=== PATIENT | female | born 1990 | race African-American/Black ===

== ENCOUNTER 2017-09-03 23:27 | Emergency (ER) | payer OTHER ==
--- NOTE | 2017-09-04 01:27 | EDPHYS ---
Physician Documentation [facility] Name: Sarah Solomon Age: 27 yrs Sex: Female : 1990 Arrival Date: 09/03/2017 Time: 23:31 Bed 14 Private MD: ED Physician Jose Spear HPI: 09/04 01:23 This 27 yrs old Black Female presents to ER via Ambulatory with complaints of hand pain.gs 01:23 The patient or guardian reports injury. The complaints affect the palmar aspect of gs distal phalanx of left thumb and palmar aspect of proximal phalanx of left thumb. Context: The problem was sustained at home, resulted from a direct blow, hyperextension. Onset: The symptoms/episode began/occurred acutely, 2 day(s) ago. Modifying factors: the symptoms are aggravated by movement. Associated signs and symptoms: Pertinent negatives: cyanosis distally, numbness distally. Severity of symptoms: At their worst the symptoms were moderate, in the emergency department the symptoms are unchanged. The patient has not experienced similar symptoms in the past. 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 - Social history:: Smoking status: Patient uses tobacco products, smokes one-half pack cigarettes per day. ROS: 09/04 01:23 All other systems are negative. gs Exam: 01:23 Head/Face: Normocephalic, atraumatic. Eyes: Pupils equal round and reactive to light, gs extra-ocular motions intact. Lids and lashes normal. Conjunctiva and sclera are non-icteric and not injected. Cornea within normal limits. Periorbital areas with no swelling, redness, or edema. ENT: Nares patent. No nasal discharge, no septal abnormalities noted. Tympanic membranes are normal and external auditory canals are clear. Oropharynx with no redness, swelling, or masses, exudates, or evidence of obstruction, uvula midline. Mucous membranes moist. Neck: Trachea midline, no thyromegaly or masses palpated, and no cervical lymphadenopathy. Supple, full range of motion without nuchal rigidity, or vertebral point tenderness. No Meningismus. Chest/axilla: Normal chest wall appearance and motion. Nontender with no deformity. No lesions are appreciated. Cardiovascular: Regular rate and rhythm with a normal S1 and S2. No gallops, murmurs, or rubs. Normal PMI, no JVD. No pulse deficits. Respiratory: Lungs have equal breath sounds bilaterally, clear to auscultation and percussion. No rales, rhonchi or wheezes noted. No increased work of breathing, no retractions or nasal flaring. Abdomen/GI: Soft, non-tender, with normal bowel sounds. No distension or tympany. No guarding or rebound. No evidence of tenderness throughout. Back: No spinal tenderness. No costovertebral tenderness. Full range of motion. Skin: Warm, dry with normal turgor. Normal color with no rashes, no lesions, and no evidence of cellulitis. Neuro: Awake and alert, GCS 15, oriented to person, place, time, and situation. Cranial nerves II-XII grossly intact. Motor strength 5/5 in all extremities. Sensory grossly intact. Cerebellar exam normal. Normal gait. 01:23 Constitutional: The patient appears alert, awake. 01:23 Musculoskeletal/extremity: Extremities: noted in the palmar aspect of distal phalanx of left thumb and palmar aspect of proximal phalanx of left thumb: pain, swelling, tenderness, Circulation is intact in all extremities. Vital Signs: 09/03 23:52 BP 133 / 62; Pulse 82; Resp 18; Temp 98.1(TE); Pulse Ox 99% on R/A; Weight 84.82 kg ak1 (R); Height 5 ft. 2 in. (157.48 cm) (R); Pain 0/10; 23:52 Body Mass Index 34.20 (84.82 kg, 157.48 cm) ak1 23:52 pt c/o numbness at this time ak1 Procedures: 09/04 01:27 Splinting: Splint applied to left hand using Orthoglass splint, applied by tech. Examined by me, post splint application: neurovascular intact, 2+ distal pulses palpable, brisk capillary refill noted, Patient tolerated well. MDM: 00:41 Patient medically screened. gs 01:23 Differential diagnosis: closed fracture, contusion, tendonitis. Data reviewed: vital gs signs, nurses notes. Response to treatment: the patient's symptoms have mildly improved after treatment, and as a result, I will discharge patient. 09/04 00:42 Order name: Hand Left 3 View XRAY 09/04 01:26 Order name: Splint: thumb spica; Complete Time: 01:44 Administered Medications: No medications were administered Disposition: 09/04/17 01:25 Discharged to Home. Impression: Sprain of interphalangeal joint of left thumb. - Condition is Stable. - Discharge Instructions: Gamekeeper's, Skier's Thumb. - Prescriptions for Tylenol- Codeine #4 300-60 mg Oral Tablet - take 1 tablet by ORAL route every 6 hours As needed; 10 tablet. - Work release form, Medication Reconciliation Form, Thank You Letter, Antibiotic Education, Prescription Opioid Use form. - Follow up: James Khan MD; When: 2 - 3 days; Reason: Re-evaluation by your physician. Signatures: Dispatcher [employer] Yumiko Perez RN RN ak1 Jose Spear MD MD Issac Covarrubias RN RN
--- NOTE | 2017-09-04 01:27 | ER ---
Nurse's Notes [facility] Name: Sarah Solomon Age: 27 yrs Sex: Female : 1990 Arrival Date: 09/03/2017 Time: 23:31 Bed 14 Private MD: Diagnosis: Sprain of interphalangeal joint of left thumb Presentation: 09/03 23:50 Presenting complaint: Patient states: left thumb pain since yesterday after playing ak1 with family. pt c/o limited ROM and swelling to left thumb. Transition of care: patient was not received from another setting of care. Onset of symptoms was September 02, 2017. Care prior to arrival: None. 23:50 Method Of Arrival: Ambulatory ak1 23:50 Acuity: JOSÉ 4 ak1 Triage Assessment: 23:56 General: Appears in no apparent distress. Behavior is calm, cooperative. ak1 DIRECTOR HOME: 23:52 LMP 08/17/2017 ak1 Historical: - Allergies: 23:52 No Known Allergies; ak1 - Home Meds: 23:52 None [Active]; ak1 - PMHx: 23:52 None; ak1 - PSHx: 23:52 None; ak1 - Immunization history:: Adult Immunizations unknown. - Social history:: Smoking status: Patient uses tobacco products, smokes one-half pack cigarettes per day. Screenin:56 Abuse screen: Denies threats or abuse. Denies injuries from another. Nutritional ak1 screening: No deficits noted. Tuberculosis screening: No symptoms or risk factors identified. Fall Risk None identified. Assessment: 09/04 00:13 General: Appears comfortable, well groomed, well developed, Behavior is calm, fu cooperative, appropriate for age, Denies fever, chills. Pain: Complains of pain in left thumb Pain does not radiate. Pain currently is 2 out of 10 on a pain scale. Quality of pain is described as Pain began 1 day ago. Neuro: No deficits noted. Respiratory: Breath sounds are clear bilaterally. Derm: swelling to left thumb. Vital Signs: 09/03 23:52 BP 133 / 62; Pulse 82; Resp 18; Temp 98.1(TE); Pulse Ox 99% on R/A; Weight 84.82 kg ak1 (R); Height 5 ft. 2 in. (157.48 cm) (R); Pain 0/10; 23:52 Body Mass Index 34.20 (84.82 kg, 157.48 cm) ak1 23:52 pt c/o numbness at this time ak1 ED Course: 23:31 Patient arrived in ED. ds1 23:47 Issac Covarrubias, RN is Primary Nurse. fu 23:51 Triage completed. ak1 23:53 Jose Spear MD is Attending Physician. gs 23:56 Patient has correct armband on for positive identification. Bed in low position. Call ak1 light in reach. Side rails up X 1. Adult w/ patient. Pulse ox on. NIBP on. 23:57 Arm band placed on Patient placed in an exam room, on a stretcher, on pulse oximetry, ak1 Patient notified of wait time. 0318 00:57 X-ray completed. Portable x-ray completed in exam room. Patient tolerated procedure jw2 well. 01:25 Jaems Khan MD is Referral Physician. gs 01:55 Thumb spica splint applied by Ivonne Murphy soil science technical officer. fu 02:09 Patient did not have IV access during this emergency room visit. fu Administered Medications: No medications were administered Outcome: 01:25 Discharge ordered by . gs 01:55 Discharged to home ambulatory. fu 01:55 Condition: stable 01:55 Discharge instructions given to patient, Instructed on discharge instructions, Demonstrated understanding of instructions, medications, Prescriptions given X 1. 02:10 Patient left the ED. fu Signatures: Sirisha Sigala ds1 Yumiko Guillermo RN RN ak1 Ev Gee jw2 Jose Spear MD MD Issac Covarrubias, MANUELA RN fu Corrections: (The following items were deleted from the chart) 00:17 00:06 Issac Covarrubias, MANUELA is Primary Nurse. fu fu
--- NOTE | 2017-09-04 13:00 | RAD REPORT ---
EXAM DESCRIPTION: RAD - Hand Left 3 View - 09/04/2017 1:00 am CLINICAL HISTORY: First digit pain COMPARISON: None. FINDINGS: No bone or joint abnormality is detected.
== END 2017-09-04 02:10 | disposition home or self-care (01) ==
LOC: ER 23:27
PROC: 2W3HX1Z Immobilization of Left Thumb using Splint (ICD-10-PCS; principal; 2017-09-04)
DX: S63.622A Sprain of interphalangeal joint of left thumb, initial encounter (principal); X58.XXXA Exposure to other specified factors, initial encounter; Y93.9 Activity, unspecified; Y92.009 Unspecified place in unspecified non-institutional (private) residence as the place of occurrence of the external cause; F17.210 Nicotine dependence, cigarettes, uncomplicated
CPT/HCPCS: 99283

== ENCOUNTER 2018-08-08 16:42 | Emergency (ER) | payer OTHER ==
--- NOTE | 2018-08-08 18:04 | EDPHYS ---
Physician Documentation [facility] Name: Sarah Solomon Age: 28 yrs Sex: Female : 1990 Arrival Date: 08/08/2018 Time: 16:44 Bed 12 Private MD: ED Physician Tom Carmona HPI: 08/08 17:59 This 28 yrs old Black Female presents to ER via Ambulatory with complaints of Numbness snw Of Hand. 18:00 The patient or guardian reports numbness. The complaints affect the left lateral hand. snw Context: The problem was sustained at an unknown location. Onset: The symptoms/episode began/occurred gradually, 1 month(s) ago, and became persistent. Associated signs and symptoms: Pertinent positives: decreased sensation distally. Severity of symptoms: At their worst the symptoms were moderate. The patient has not experienced similar symptoms in the past. It is unknown whether or not the patient has recently seen a physician. 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 - Social history:: Smoking status: Patient/guardian denies using tobacco. - Ebola Screening: : No symptoms or risks identified at this time. ROS: 17:59 Constitutional: Negative for fever, chills, and weight loss, Eyes: Negative for injury, snw pain, redness, and discharge, ENT: Negative for injury, pain, and discharge, Neck: Negative for injury, pain, and swelling, Cardiovascular: Negative for chest pain, palpitations, and edema, Respiratory: Negative for shortness of breath, cough, wheezing, and pleuritic chest pain, Abdomen/GI: Negative for abdominal pain, nausea, vomiting, diarrhea, and constipation, Back: Negative for injury and pain, : Negative for injury, bleeding, discharge, and swelling, Skin: Negative for injury, rash, and discoloration, Neuro: Negative for headache, weakness, numbness, tingling, and seizure. 17:59 MS/extremity: Positive for paresthesias, numbness in carpal tunnel distribution. Exam: 17:57 Constitutional: This is a well developed, well nourished patient who is awake, alert, snw and in no acute distress. Head/Face: Normocephalic, atraumatic. Eyes: Pupils equal round and reactive to light, extra-ocular motions intact. Lids and lashes normal. Conjunctiva and sclera are non-icteric and not injected. Cornea within normal limits. Periorbital areas with no swelling, redness, or edema. ENT: Nares patent. No nasal discharge, no septal abnormalities noted. Tympanic membranes are normal and external auditory canals are clear. Oropharynx with no redness, swelling, or masses, exudates, or evidence of obstruction, uvula midline. Mucous membranes moist. Neck: Trachea midline, no thyromegaly or masses palpated, and no cervical lymphadenopathy. Supple, full range of motion without nuchal rigidity, or vertebral point tenderness. No Meningismus. Chest/axilla: Normal chest wall appearance and motion. Nontender with no deformity. No lesions are appreciated. Cardiovascular: Regular rate and rhythm with a normal S1 and S2. No gallops, murmurs, or rubs. Normal PMI, no JVD. No pulse deficits. Respiratory: Lungs have equal breath sounds bilaterally, clear to auscultation and percussion. No rales, rhonchi or wheezes noted. No increased work of breathing, no retractions or nasal flaring. Abdomen/GI: Soft, non-tender, with normal bowel sounds. No distension or tympany. No guarding or rebound. No evidence of tenderness throughout. Back: No spinal tenderness. No costovertebral tenderness. Full range of motion. Skin: Warm, dry with normal turgor. Normal color with no rashes, no lesions, and no evidence of cellulitis. Neuro: Awake and alert, GCS 15, oriented to person, place, time, and situation. Cranial nerves II-XII grossly intact. Motor strength 5/5 in all extremities. Sensory grossly intact. Cerebellar exam normal. Normal gait. Psych: Awake, alert, with orientation to person, place and time. Behavior, mood, and affect are within normal limits. 17:57 Musculoskeletal/extremity: Extremities: all appear grossly normal, with no appreciated pain with palpation, ROM: no acute changes, Circulation is intact in all extremities. the medial aspect of left hand, medial aspect of left fingers, dorsal aspect of middle phalanx of left ring finger, dorsal aspect of proximal phalanx of left ring finger, dorsal aspect of middle phalanx of left little finger, dorsal aspect of proximal phalanx of left little finger, palmar aspect of distal phalanx of left little finger, palmar aspect of middle phalanx of left little finger, palmar aspect of proximal phalanx of left little finger, palmar aspect of distal phalanx of left ring finger, palmar aspect of middle phalanx of left ring finger, palmar aspect of proximal phalanx of left ring finger, palm of left hand, inner aspect of left palm, left ring fingernail and left little fingernail numbness. Vital Signs: 17:08 BP 137 / 83; Pulse 76; Resp 16; Temp 98; Pulse Ox 100% on R/A; Pain 6/10; hb MDM: 17:12 Patient medically screened. snw 18:03 Data reviewed: vital signs, nurses notes. Data interpreted: Pulse oximetry: on room air snw is 100 %. Interpretation: normal. Counseling: I had a detailed discussion with the patient and/or guardian regarding: the historical points, exam findings, and any diagnostic results supporting the discharge/admit diagnosis, the presence of at least one elevated blood pressure reading (>120/80) during this emergency department visit, radiology results, the need for outpatient follow up, to return to the emergency department if symptoms worsen or persist or if there are any questions or concerns that arise at home. Special discussion: Based on the history and exam findings, there is no indication for further emergent testing or inpatient evaluation. I discussed with the patient/guardian the need to see the orthopedic surgeon for further evaluation of the symptoms. I discussed with the patient/guardian the need to see the primary care provider for further evaluation of the symptoms. 08/08 17:57 Order name: Wrist Splint: left; Complete Time: 18:02 snw Administered Medications: 18:00 Drug: Motrin 600 mg Route: PO; rv 18:15 Follow up: Response: Medication administered at discharge. rv Disposition: 08/09 07:01 Co-signature as Attending Physician, Tom Carmona MD I agree with the assessment and caryn plan of care. Disposition: 08/08/18 18:03 Discharged to Home. Impression: Paresthesia of skin, Carpal tunnel syndrome, left upper limb. - Condition is Stable. - Discharge Instructions: Carpal Tunnel Syndrome, Paresthesia, Wrist Splint, Carpal Tunnel Release, Hand Exercises. - Prescriptions for Diclofenac Sodium 75 mg Oral Tablet Sustained Release - take 1 tablet by ORAL route 2 times per day; 30 tablet. - Medication Reconciliation Form, Thank You Letter, Antibiotic Education, Prescription Opioid Use, Work release form form. - Follow up: Private Physician; When: 2 - 3 days; Reason: Recheck today's complaints, Continuance of care, Re-evaluation by your physician. Follow up: Emergency Department; When: As needed; Reason: Worsening of condition. Signatures: Tom Carmona MD MD cha Therrien, Shelly, OWNER SPA DIRECTOR-C OWNER SPA DIRECTOR-Csnw Liz Phillips, RN RN Maxwell Gonsalves RN RN rv Corrections: (The following items were deleted from the chart) 08/08 18:02 17:59 The patient or guardian reports numbness x 6 months to lateral hand, snw snw 18:17 18:03 08/08/2018 18:03 Discharged to Home. Impression: Paresthesia of skin; Carpal rv tunnel syndrome, left upper limb. Condition is Stable. Forms are Medication Reconciliation Form, Thank You Letter, Antibiotic Education, Prescription Opioid Use. Follow up: Private Physician; When: 2 - 3 days; Reason: Recheck today's complaints, Continuance of care, Re-evaluation by your physician. Follow up: Emergency Department; When: As needed; Reason: Worsening of condition. snw
--- NOTE | 2018-08-08 18:04 | ER ---
Nurse's Notes [facility] Name: Sarah Solomon Age: 28 yrs Sex: Female : 1990 Arrival Date: 08/08/2018 Time: 16:44 Bed 12 Private MD: Diagnosis: Paresthesia of skin;Carpal tunnel syndrome, left upper limb Presentation: 08/08 17:07 Presenting complaint: Partial left hand numbness x 1 month. Transition of care: patient hb was not received from another setting of care. Onset of symptoms is unknown. Risk Assessment: Do you want to hurt yourself or someone else? Patient reports no desire to harm self or others. Care prior to arrival: None. 17:07 Method Of Arrival: Ambulatory hb 17:07 Acuity: JOSÉ 4 hb 18:17 Initial Sepsis Screen: Does the patient meet any 2 criteria? No. Patient's initial rv sepsis screen is negative. Does the patient have a suspected source of infection? No. Patient's initial sepsis screen is negative. 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 - Social history:: Smoking status: Patient/guardian denies using tobacco. - Ebola Screening: : No symptoms or risks identified at this time. Screenin:16 Abuse screen: Denies threats or abuse. Denies injuries from another. Nutritional rv screening: No deficits noted. Tuberculosis screening: No symptoms or risk factors identified. Fall Risk None identified. Assessment: 18:15 General: Appears in no apparent distress. comfortable, Behavior is calm, cooperative. rv Pain: Complains of pain in left hand. Neuro: Level of Consciousness is awake, alert, obeys commands, Oriented to person, place, time, situation. Cardiovascular: Capillary refill < 3 seconds. Respiratory: Airway is patent. GI: No signs and/or symptoms were reported involving the gastrointestinal system. : No signs and/or symptoms were reported regarding the genitourinary system. EENT: No signs and/or symptoms were reported regarding the EENT system. Derm: Skin is intact. Musculoskeletal: Reports pain in left hand. Vital Signs: 17:08 BP 137 / 83; Pulse 76; Resp 16; Temp 98; Pulse Ox 100% on R/A; Pain 6/10; hb ED Course: 16:44 Patient arrived in ED. rg4 17:07 Triage completed. hb 17:08 Arm band placed on. hb 17:12 [facility] Down[facility]C [facility]. snw 17:12 Tom Carmona MD is Attending Physician. snw 18:16 Patient has correct armband on for positive identification. Bed in low position. Call rv light in reach. Pulse ox on. 18:17 No provider procedures requiring assistance completed. Patient did not have IV access rv during this emergency room visit. Administered Medications: 18:00 Drug: Motrin 600 mg Route: PO; rv 18:15 Follow up: Response: Medication administered at discharge. rv Outcome: 18:03 Discharge ordered by . snw 18:17 Discharged to home ambulatory. rv 18:17 Condition: good 18:17 Discharge instructions given to patient, Instructed on discharge instructions, follow up and referral plans. medication usage, Demonstrated understanding of instructions, follow-up care, medications, Prescriptions given X 1. 18:17 Patient left the ED. rv Signatures: Petra Downing FNP-C PAINT MIXER-Csnw Liz Phillips, RN RN Carie Bianchi rg4 Maxwell Gonzalez RN RN rv
[2018-08-08] MEDS ORDERED: IBUPROFEN 200 MG TAB PO ONE (18:14)
[2018-08-08] MEDS ORDERED: IBUPROFEN 400 MG TAB ONE (18:14)
== END 2018-08-08 18:17 | disposition home or self-care (01) ==
LOC: ER 16:42
DX: G56.02 Carpal tunnel syndrome, left upper limb (principal)
CPT/HCPCS: 99283

== ENCOUNTER 2020-09-28 21:54 | Emergency (ER) | payer BC, OTHER ==
[2020-09-29 00:06] LABS: Urine Blood 3+ (Negative); Urine Glucose Negative (Negative); Urine Protein Trace (Negative); Urine Specific Gravity >=1.030 (1.005-1.030); Urine pH 6.5 (5.0-7.0)
[2020-09-29] MEDS ORDERED: NA CHLORIDE 0.9% 1,000 ML ONE (00:08)
[2020-09-29 00:53] LABS: Absolute Lymphocytes (CBC) 2.6 K/uL (0.7-4.9); Basophils % 1.2 % (0-1.3); MPV 7.9 fL (7.6-11.3); RBC Red Blood Cell Count 3.68 M/uL (3.86-4.86)
[2020-09-29] MEDS ORDERED: ONDANSETRON 4 MG/2 ML VIAL ONE (01:00)
[2020-09-29] MEDS ORDERED: FAMOTIDINE 20 MG/2 ML VIAL IV ONE (01:00)
[2020-09-29 01:04] LABS: ALT/SGPT 22 U/L (12-78); AST/SGOT 11 U/L (15-37); Albumin 3.6 g/dL (3.4-5.0); Alkaline Phosphatase 56 U/L (45-117); BUN Blood Urea Nitrogen 11 mg/dL (7-18); Bicarbonate 28 mmol/L (21-32); Bilirubin Direct 0.1 mg/dL (0-0.2); Bilirubin Total 0.2 mg/dL (0.2-1.0); Glucose Level 70 mg/dL (74-106); Lipase 49 U/L (73-393); Potassium 3.7 mmol/L (3.5-5.1); Protein, Total 7.3 g/dL (6.4-8.2); Sodium Level 141 mmol/L (136-145)
--- NOTE | 2020-09-29 01:48 | EDPHYS ---
Physician Documentation [facility] Name: Sarah Solomon Age: 30 yrs Sex: Female : 1990 Arrival Date: 09/28/2020 Time: 21:55 Bed 24 Private MD: ED Physician Micah Riley HPI: 09/29 00:39 This 30 yrs old Black Female presents to ER via Ambulatory with complaints of Vomiting ma2 Blood. 00:39 This 30 yrs old Black Female presents to ER via Ambulatory with complaints of Vomiting .ma2 00:39 The patient presents to the emergency department with nausea, vomiting, diarrhea. ma2 Onset: The symptoms/episode began/occurred gradually, 1 day(s) ago. Associated signs and symptoms: Pertinent negatives: belching, dysuria, flatulence, GI bleeding. Severity of symptoms: At their worst the symptoms were very mild in the emergency department the symptoms have resolved. The patient has not experienced similar symptoms in the past. states there was streaks of blood mixed with vomits. 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 - Social history:: Smoking status: Patient/guardian denies using tobacco, Stopped _ months ago 4 Patient/guardian denies using alcohol, street drugs, The patient lives with family. - Family history:: not pertinent. ROS: 09/29 00:39 Constitutional: Negative for fever, chills, and weight loss. ma2 All other systems are negative. Exam: 00:39 Constitutional: This is a well developed, well nourished patient who is awake, alert, ma2 and in no acute distress. Chest/axilla: Normal chest wall appearance and motion. Nontender with no deformity. No lesions are appreciated. Cardiovascular: Regular rate and rhythm with a normal S1 and S2. No gallops, murmurs, or rubs. Normal PMI, no JVD. No pulse deficits. Respiratory: Lungs have equal breath sounds bilaterally, clear to auscultation and percussion. No rales, rhonchi or wheezes noted. No increased work of breathing, no retractions or nasal flaring. Abdomen/GI: Soft, non-tender, with normal bowel sounds. No distension or tympany. No guarding or rebound. No evidence of tenderness throughout. MS/ Extremity: Pulses equal, no cyanosis. Neurovascular intact. Full, normal range of motion. Neuro: Awake and alert, GCS 15, oriented to person, place, time, and situation. Cranial nerves II-XII grossly intact. Motor strength 5/5 in all extremities. Sensory grossly intact. Cerebellar exam normal. Normal gait. Vital Signs: 09/28 22:35 BP 138 / 92; Pulse 84; Resp 16 S; Temp 98.8(O); Pulse Ox 99% on R/A; Weight 81.65 kg bb (R); Height 5 ft. 2 in. (157.48 cm) (R); Pain 6/10; 09/29 00:45 BP 114 / 82; Pulse 73; Resp 16 S; Pulse Ox 100% on R/A; bb 02:02 BP 139 / 79; Pulse 75; Resp 16 S; Temp 97.4(TE); Pulse Ox 100% on R/A; bb 09/28 22:35 Body Mass Index 32.92 (81.65 kg, 157.48 cm) MDM: 09/28 23:31 Patient medically screened. [facility] 09/29 00:39 Differential diagnosis: Nonspecific abd pain, gastritis, viral gastroenteritis, ma2 gastroenteritis. 01:45 Data reviewed: vital signs, nurses notes. Counseling: I had a detailed discussion with [facility] the patient and/or guardian regarding: the historical points, exam findings, and any diagnostic results supporting the discharge/admit diagnosis, the presence of at least one elevated blood pressure reading (>120/80) during this emergency department visit, the need for outpatient follow up. Response to treatment: the patient's symptoms have markedly improved after treatment. 09/28 23:32 Order name: Basic Metabolic Panel; Complete Time: : [facility] 09/28 23:32 Order name: CBC with Diff; Complete Time: : [facility] 09/28 23:32 Order name: Hepatic Function; Complete Time: : [facility] 09/28 23:32 Order name: Lipase; Complete Time: : [facility] 09/29 00:05 Order name: Urine --Ancillary (enter results) 2 09/29 00:06 Order name: Urine Dipstick-Ancillary; Complete Time: 00:11 EDCT 09/28 23:32 Order name: IV Saline Lock; Complete Time: 00:02 [facility] 09/28 23:32 Order name: Labs collected and sent; Complete Time: 00:02 [facility] 09/28 23:32 Order name: Urine Dipstick-Ancillary (obtain specimen); Complete Time: 00:02 [facility] 09/28 23:32 Order name: Chest Single View XRAY ma2 Administered Medications: 00:01 Drug: NS 0.9% 1000 ml Route: IV; Rate: 1 bolus; Site: left antecubital; bb 02:00 Follow up: IV Status: Order to discontinue infusion; IV Intake: 800ml bb 00:45 Drug: Pepcid (famotidine) 20 mg Route: IVP; Site: left antecubital; bb 01:13 Follow up: Response: No adverse reaction bb 00:47 Drug: Zofran (Ondansetron) 4 mg Route: IVP; Site: left antecubital; bb 01:13 Follow up: Response: No adverse reaction bb Disposition: 09/29/20 01:46 Discharged to Home. Impression: Gastritis, unspecified, with bleeding. - Condition is Stable. - Discharge Instructions: Gastritis, Adult, [id number]. - Prescriptions for Pepcid 20 mg Oral Tablet - take 1 tablet by ORAL route every 12 hours for 10 days; 20 tablet. Zofran 8 mg Oral Tablet - take 1 tablet by ORAL route every 12 hours As needed; 20 tablet. - Medication Reconciliation Form, Thank You Letter, Antibiotic Education, Prescription Opioid Use form. - Follow up: Private Physician; When: Tomorrow; Reason: If symptoms return, Continuance of care. Follow up: Figueroa Chin MD; When: Tomorrow; Reason: If symptoms return. Signatures: Dispatcher [employer] Hodan Rivera RN RN Micah Hylton MD MD ma2 Corrections: (The following items were deleted from the chart) 01:46 01:46 09/29/2020 01:46 Discharged to Home. Impression: Gastritis, unspecified, with ma2 bleeding. Condition is Stable. Prescriptions for Pepcid 20 mg Oral Tablet - take 1 tablet by ORAL route every 12 hours for 10 days; 20 tablet, Zofran 8 mg Oral Tablet - take 1 tablet by ORAL route every 12 hours As needed; 20 tablet. and Forms are Medication Reconciliation Form, Thank You Letter, Antibiotic Education, Prescription Opioid Use. Follow up: Private Physician; When: Tomorrow; Reason: If symptoms return, Continuance of care. ma2 02:03 01:46 09/29/2020 01:46 Discharged to Home. Impression: Gastritis, unspecified, with bb bleeding. Condition is Stable. Prescriptions for Pepcid 20 mg Oral Tablet - take 1 tablet by ORAL route every 12 hours for 10 days; 20 tablet, Zofran 8 mg Oral Tablet - take 1 tablet by ORAL route every 12 hours As needed; 20 tablet. and Forms are Medication Reconciliation Form, Thank You Letter, Antibiotic Education, Prescription Opioid Use. Follow up: Private Physician; When: Tomorrow; Reason: If symptoms return, Continuance of care. Follow up: Figueroa Chin; When: Tomorrow; Reason: If symptoms return. ma2
--- NOTE | 2020-09-29 02:03 | ER ---
Nurse's Notes [facility] Name: Sarah Solomon Age: 30 yrs Sex: Female : 1990 Arrival Date: 09/28/2020 Time: 21:55 Bed 24 Private MD: Diagnosis: Gastritis, unspecified, with bleeding Presentation: 09/28 22:35 Chief complaint: Patient states: she started having abdominal pain this morning then bb she has vomited x 3 the last 2 times had blood in it, denies diarrhea today. Coronavirus screen: At this time, the client does not indicate any symptoms associated with coronavirus-19. Ebola Screen: No symptoms or risks identified at this time. Initial Sepsis Screen: Does the patient meet any 2 criteria? No. Patient's initial sepsis screen is negative. Does the patient have a suspected source of infection? No. Patient's initial sepsis screen is negative. Risk Assessment: Do you want to hurt yourself or someone else? Patient reports no desire to harm self or others. Onset of symptoms was September 28, 2020. 22:35 Method Of Arrival: Ambulatory bb 22:35 Acuity: JOSÉ 3 bb Triage Assessment: 22:37 General: Appears in no apparent distress. Behavior is calm, cooperative. Pain: bb Complains of pain in throat Pain currently is 6 out of 10 on a pain scale. Neuro: Level of Consciousness is awake, alert, obeys commands, Oriented to person, place, time, situation. Cardiovascular: No deficits noted. Respiratory: Respiratory effort is even, unlabored, Respiratory pattern is regular. GI: Reports lower abdominal pain, vomiting. Derm: Skin is dry, Skin is normal, Skin temperature is warm. Musculoskeletal: Circulation, motion, and sensation intact. 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 - Social history:: Smoking status: Patient/guardian denies using tobacco, Stopped _ months ago 4 Patient/guardian denies using alcohol, street drugs, The patient lives with family. - Family history:: not pertinent. Screenin/12 00:02 Abuse screen: Denies threats or abuse. Nutritional screening: No deficits noted. bb Tuberculosis screening: No symptoms or risk factors identified. Fall Risk None identified. Assessment: 00:02 Reassessment: No changes from previously documented assessment. see triage assessment. bb 00:45 Reassessment: Patient is alert, oriented x 3, equal unlabored respirations, skin bb warm/dry/pink. pt resting quietly, family at bedside, IV patent, intact with fluids infusing awaiting diagnostic results. 02:01 Reassessment: Patient is alert, oriented x 3, equal unlabored respirations, skin bb warm/dry/pink. pt verbalized understanding of and agrees to plan of care discharge instructions given pt ambulated with steady gait to exit accompanied by friend. Vital Signs: 09/28 22:35 BP 138 / 92; Pulse 84; Resp 16 S; Temp 98.8(O); Pulse Ox 99% on R/A; Weight 81.65 kg bb (R); Height 5 ft. 2 in. (157.48 cm) (R); Pain 6/10; 09/29 00:45 BP 114 / 82; Pulse 73; Resp 16 S; Pulse Ox 100% on R/A; bb 02:02 BP 139 / 79; Pulse 75; Resp 16 S; Temp 97.4(TE); Pulse Ox 100% on R/A; bb 09/28 22:35 Body Mass Index 32.92 (81.65 kg, 157.48 cm) bb ED Course: 09/28 21:55 Patient arrived in ED. cl3 22:37 Triage completed. bb 22:37 Arm band placed on Patient placed in waiting room, Patient notified of wait time. bb 23:31 Micah Riley MD is Attending Physician. ma2 09/29 00:01 Initial lab(s) drawn, by ED staff, sent to lab. Inserted saline lock: 20 gauge in left bb antecubital area, using aseptic technique. Blood collected. 00:02 Patient has correct armband on for positive identification. Bed in low position. Call bb light in reach. Side rails up X 1. Pulse ox on. NIBP on. 01:46 Figueroa Chin MD is Referral Physician. ma2 02:02 No provider procedures requiring assistance completed. IV discontinued, intact, bb bleeding controlled, No redness/swelling at site. Pressure dressing applied. 03:51 Chest Single View XRAY In Process Unspecified. EDMS Administered Medications: 00:01 Drug: NS 0.9% 1000 ml Route: IV; Rate: 1 bolus; Site: left antecubital; bb 02:00 Follow up: IV Status: Order to discontinue infusion; IV Intake: 800ml bb 00:45 Drug: Pepcid (famotidine) 20 mg Route: IVP; Site: left antecubital; bb 01:13 Follow up: Response: No adverse reaction bb 00:47 Drug: Zofran (Ondansetron) 4 mg Route: IVP; Site: left antecubital; bb 01:13 Follow up: Response: No adverse reaction bb Intake: 02:00 IV: 800ml; Total: 800ml. bb Outcome: 01:46 Discharge ordered by MD. gaona 02:02 Discharged to home ambulatory, with friend. bb 02:02 Condition: stable 02:02 Discharge instructions given to patient, Instructed on discharge instructions, follow up and referral plans. medication usage, Demonstrated understanding of instructions, follow-up care, medications, Prescriptions given X 2. 02:03 Patient left the ED. bb Signatures: Dispatcher [employer] EDMS Hodan Sanchez RN RN bb Micah Riley MD MD ma2 Lewis, Charde cl3
[2020-09-29 02:31] LABS: Urine Specific Gravity/Preg >1.030 (1.005-1.030)
--- NOTE | 2020-09-29 08:01 | RAD REPORT ---
EXAM DESCRIPTION: Dominik Single View09/29/2020 3:51 am CLINICAL HISTORY: Chest pain COMPARISON: none FINDINGS: The lungs appear clear of acute infiltrate. The heart is normal size IMPRESSION: No acute abnormalities displayed
== END 2020-09-29 02:03 | disposition home or self-care (01) ==
LOC: ER 21:54
DX: K29.71 Gastritis, unspecified, with bleeding (principal)
CPT/HCPCS: 96361; 85025; 80048; 36415; 81025; 80076; 81003; 83690; 71045; 96375; 96374; 99284; J2405

== ENCOUNTER 2020-10-15 18:21 | Emergency (ER) | payer BC, OTHER ==
[2020-10-15] MEDS ORDERED: TETRACAINE HCL 0.5% 4ML OPTH ONE (19:41)
[2020-10-15] MEDS ORDERED: FLUORESCEIN SODIUM 1 MG/WRAP ONE (19:41)
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
[2020-10-15 20:22] VITALS: TEMP 97.4; O2SAT 99
[2020-10-15 20:23] VITALS: BP 139/85
== END 2020-10-15 20:16 | disposition home or self-care (01) ==
LOC: ER 18:21
DX: H10.213 Acute toxic conjunctivitis, bilateral (principal); Z77.098 Contact with and (suspected) exposure to other hazardous, chiefly nonmedicinal, chemicals
CPT/HCPCS: 99282

== ENCOUNTER 2022-07-14 18:01 | Emergency (ER) | payer BC ==
--- OUTSIDE RECORDS SUMMARY | 2022-07-14 18:03 | XMS REPORT | Continuity of Care Document ---
:1990 Author Organization [facility] t Address [address] [place] [address] Care Team Providers Name Role Phone TIGRE WILLIAM DEYSI-NAM Attending Clinician Unavailable Problems This patient has no known problems. Allergies, Adverse Reactions, Alerts This patient has no known allergies or adverse reactions. Medications This patient has no known medications. Procedures This patient has no known procedures. Encounters Start End Encounter Admission Attending Care Care Encounter Source Date/Time Date/Time Type Type Clinicians Facility Department ID 2021-10-18 2021-10-19 Emergency E [id number] 23:35:00 02:26:00 TIGRE cooley [facility] Results This patient has no known results.
[2022-07-14 20:41] LABS: Urine Blood 3+ (Negative); Urine Glucose Negative (Negative); Urine Protein 2+ (Negative)
[2022-07-14 21:11] LABS: Absolute Lymphocytes (CBC) 2.2 K/uL (0.7-4.9); Lymphocytes % 19.3 % (15.3-44.8); MCV 90.1 fL (80-100); MPV 7.1 fL (7.6-11.3)
[2022-07-14 21:15] LABS: Protime INR 1.04
[2022-07-14] MEDS ORDERED: NA CHLORIDE 0.9% 1,000 ML ONE (21:21)
[2022-07-14 21:35] LABS: ALT/SGPT 24 U/L (13-56); AST/SGOT 11 U/L (15-37); Albumin 3.4 g/dL (3.4-5.0); Alkaline Phosphatase 74 U/L (45-117); BUN Blood Urea Nitrogen 12 mg/dL (7-18); Bicarbonate 28 mmol/L (21-32); Bilirubin Total 0.3 mg/dL (0.2-1.0); Glomerular Filtration Rate 88 ml/min (=/>90); Glucose Level 103 mg/dL (74-106); Magnesium 2.2 mg/dL (1.6-2.4); Potassium 3.7 mmol/L (3.5-5.1); Protein, Total 7.4 g/dL (6.4-8.2); Sodium Level 140 mmol/L (136-145); Troponin High Sensitivity 3.7 pg/mL (<58.9)
[2022-07-14 21:44] LABS: Bilirubin Direct < 0.1 mg/dL (0-0.2)
--- NOTE | 2022-07-14 22:10 | EDPHYS ---
Physician Documentation [facility] Name: Sarah Solomon Age: 32 yrs Sex: Female : 1990 Arrival Date: 07/14/2022 Time: 18:07 Bed 12 Private MD: ED Physician Suleman Gruber HPI: 07/14 19:14 This 32 yrs old Black Female presents to ER via Ambulatory with complaints of kb Dizziness, Passed Out Prior To Arrival. 19:13 Pt reports she was leaning over trying to get the vicente out of the trunk, got kb lightheaded so she started walking to the house and passed out. Reports fatigue for the last few days. 19:14 The patient has experienced syncope, collapsed. Onset: The symptoms/episode kb began/occurred just prior to arrival. Duration: This was a single episode. Context: the episode(s) was witnessed, by family, occurred outdoors. Associated injury: The patient did not suffer any apparent associated injury. Associated signs and symptoms: Pertinent positives: dizziness. Current symptoms: Currently, the patient is not experiencing any symptoms. The patient has not experienced similar symptoms in the past. The patient has not recently seen a physician. 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 - Social history:: Smoking status: Patient denies any tobacco usage or history of. ROS: 19:14 Constitutional: Negative for fever, chills, and weight loss. kb 19:14 Constitutional: Positive for fatigue. 19:14 Respiratory: Positive for dyspnea on exertion. 19:14 : Positive for vaginal bleeding. 19:14 Neuro: Positive for dizziness, syncope. 19:14 All other systems are negative. Exam: 19:14 Abdomen/GI: Exam negative for kb 19:14 Constitutional: This is a well developed, well nourished patient who is awake, alert, and in no acute distress. Head/Face: Normocephalic, atraumatic. Eyes: Pupils equal round and reactive to light, extra-ocular motions intact. Lids and lashes normal. Conjunctiva and sclera are non-icteric and not injected. Cornea within normal limits. Periorbital areas with no swelling, redness, or edema. ENT: Moist Mucous membranes Cardiovascular: Regular rate and rhythm with a normal S1 and S2. No gallops, murmurs, or rubs. No pulse deficits. Respiratory: Respirations even and unlabored. No increased work of breathing. Talking in full sentences Abdomen/GI: Soft, non-tender. No distention Skin: Warm, dry with normal turgor. Normal color. MS/ Extremity: Pulses equal, no cyanosis. Neurovascular intact. Full, normal range of motion. Neuro: Awake and alert, GCS 15, oriented to person, place, time, and situation. Moves all extremities. Normal gait. Psych: Awake, alert, with orientation to person, place and time. Behavior, mood, and affect are within normal limits. 22:10 ECG was reviewed by the Attending Physician. Vital Signs: 18:52 Pulse 89; Resp 16 S; Temp 98.8; Pulse Ox 100% on R/A; iw 20:55 BP 123 / 71; Pulse 81; Resp 17; Pulse Ox 98% on R/A; lg3 21:09 BP 119 / 65 Supine; Pulse 85; lg3 21:09 BP 117 / 58 Sitting; Pulse 89; lg3 21:09 BP 129 / 71 Standing; Pulse 89; lg3 22:22 BP 126 / 80; Pulse 84; Resp 16 S; Pulse Ox 99% on R/A; lg3 MDM: 18:55 Patient medically screened. kb 19:15 Differential Diagnosis: idiopathic syncope, vasovagal episode, dehydration, anemia. Data reviewed: vital signs, nurses notes. Historians other than the Patient: Parent: mother. 22:08 Counseling: I had a detailed discussion with the patient and/or guardian regarding: the kb historical points, exam findings, and any diagnostic results supporting the discharge/admit diagnosis, lab results, the need for outpatient follow up, a family practitioner, to return to the emergency department if symptoms worsen or persist or if there are any questions or concerns that arise at home. ED course: Pt reports vaginal bleeding since May 19, 2022. Pt has been seeing a NETWORK DESIGNER for this problem and will follow up. Recommended iron supplements . 07/14 18:55 Order name: Basic Metabolic Panel; Complete Time: 21:52 kb 07/14 18:55 Order name: CBC with Diff; Complete Time: 21:12 kb 07/14 18:55 Order name: Hepatic Function; Complete Time: 21:52 kb 07/14 18:55 Order name: Magnesium; Complete Time: 21:52 kb 07/14 18:55 Order name: Protime (+inr); Complete Time: 21:24 kb 07/14 18:55 Order name: Ptt, Activated; Complete Time: 21:24 kb 07/14 18:55 Order name: Troponin High Sensitivity; Complete Time: 21:52 kb 07/14 18:55 Order name: EKG; Complete Time: 18:56 kb 07/14 18:55 Order name: Cardiac monitoring; Complete Time: 20:52 kb 07/14 18:55 Order name: EKG - Nurse/Tech; Complete Time: 20:52 kb 07/14 18:55 Order name: IV Saline Lock; Complete Time: 20:52 kb 07/14 20:41 Order name: Urine Dipstick-Ancillary; Complete Time: 20:42 EDMS 07/14 20:49 Order name: Urine --Ancillary (enter results); Complete Time: 21:30 mw2 07/14 18:55 Order name: Labs collected and sent; Complete Time: 20:52 kb 07/14 18:55 Order name: NPO; Complete Time: 21:10 kb 07/14 18:55 Order name: Orthostatics; Complete Time: 21:10 kb 07/14 18:55 Order name: Urine Dipstick-Ancillary (obtain specimen); Complete Time: 20:48 kb 07/14 20:49 Order name: Urine Test (obtain specimen); Complete Time: 20:52 mw2 EC:10 Rate is 82 beats/min. Rhythm is regular. QRS [employer] is Normal. FL interval is normal at kb 140 msec. QRS interval is normal at 74 msec. QT interval is normal at 404 msec. Administered Medications: 21:20 Drug: NS 0.9% 1000 ml Route: IV; Rate: 1000 ml; Site: right antecubital; lg3 Disposition Summary: 07/14/22 22:10 Discharge Ordered Location: Home kb Condition: Stable kb Diagnosis - Syncope kb - Abnormal uterine and vaginal bleeding, unspecified kb Followup: kb - With: Emergency Department - When: As needed - Reason: Worsening of condition Followup: kb - With: Private Physician - When: 2 - 3 days - Reason: Recheck today's complaints, Continuance of care, Re-evaluation by your physician Discharge Instructions: - Discharge Summary Sheet kb - Syncope, [id number] kb - Abnormal Uterine Bleeding, [id number] kb Forms: - Medication Reconciliation Form kb - Thank You Letter kb - Antibiotic Education kb - Prescription Opioid Use kb Signatures: Dispatcher [employer] EDMichelle Pritchard, ABBIEC RADHA-Jossy Carrasco RN RN iw Gatti, MyKena 2 Alana Reyes RN RN lg3
--- NOTE | 2022-07-14 22:10 | ER ---
Nurse's Notes [facility] Name: Sarah Solomon Age: 32 yrs Sex: Female : 1990 Arrival Date: 07/14/2022 Time: 18:07 Bed 12 Private MD: Diagnosis: Syncope;Abnormal uterine and vaginal bleeding, unspecified Presentation: 07/14 18:52 Chief complaint: Patient states: fatigue for a few days and dizzy today and felt like iw she was going to pass out, she is having vaginal bleeding since April, she got dizzy when she was turning the vicente in the car. Coronavirus screen: At this time, the client does not indicate any symptoms associated with coronavirus-19. Ebola Screen: Patient negative for fever greater than or equal to 101.5 degrees Fahrenheit, and additional compatible Ebola Virus Disease symptoms Patient denies exposure to infectious person. Patient denies travel to an Ebola-affected area in the 21 days before illness onset. No symptoms or risks identified at this time. Initial Sepsis Screen: Does the patient meet any 2 criteria? No. Patient's initial sepsis screen is negative. Does the patient have a suspected source of infection? No. Patient's initial sepsis screen is negative. Risk Assessment: Do you want to hurt yourself or someone else? Patient reports no desire to harm self or others. Onset of symptoms was July 14, 2022. 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 - Social history:: Smoking status: Patient denies any tobacco usage or history of. Screenin:[facility] ED Fall Risk Assessment (Adult) History of falling in the last 3 months, lg3 including since admission No falls in past 3 months (0 pts). Abuse screen: Denies threats or abuse. Denies injuries from another. Nutritional screening: No deficits noted. Tuberculosis screening: No symptoms or risk factors identified. Assessment: 20:53 General: Appears in no apparent distress. comfortable, Behavior is calm, cooperative. lg3 Pain: Denies pain. Neuro: No deficits noted. Hanna Agitation-Sedation Scale (RASS): 0 - Alert and Calm Level of Consciousness is awake, alert, obeys commands, Oriented to person, place, time, situation. Cardiovascular: No deficits noted. Denies chest pain, shortness of breath, Capillary refill < 3 seconds Clubbing of nail beds is absent JVD is absent Patient's skin is warm and dry. Respiratory: No deficits noted. Airway is patent Trachea midline Respiratory effort is even, unlabored, Respiratory pattern is regular, symmetrical. GI: No deficits noted. No signs and/or symptoms were reported involving the gastrointestinal system. Abdomen is round non-distended. : No deficits noted. Reports vaginal bleeding that is since April. EENT: No deficits noted. No signs and/or symptoms were reported regarding the EENT system. Derm: No deficits noted. No signs and/or symptoms reported regarding the dermatologic system. Skin is intact, is healthy with good turgor, Skin is dry, Skin is normal. Musculoskeletal: No deficits noted. Circulation, motion, and sensation intact. Range of motion: intact in all extremities, Reports generalized weakness. 22:22 Reassessment: Patient appears in no apparent distress at this time. No changes from lg3 previously documented assessment. Patient and/or family updated on plan of care and expected duration. Pain level reassessed. Patient is alert, oriented x 3, equal unlabored respirations, skin warm/dry/pink. Patient states feeling better. Vital Signs: 18:52 Pulse 89; Resp 16 S; Temp 98.8; Pulse Ox 100% on R/A; iw 20:55 BP 123 / 71; Pulse 81; Resp 17; Pulse Ox 98% on R/A; lg3 21:09 BP 119 / 65 Supine; Pulse 85; lg3 21:09 BP 117 / 58 Sitting; Pulse 89; lg3 21:09 BP 129 / 71 Standing; Pulse 89; lg3 22:22 BP 126 / 80; Pulse 84; Resp 16 S; Pulse Ox 99% on R/A; lg3 ED Course: 18:07 Patient arrived in ED. mr 18:42 Michelle Guerin FNP-C [facility]. kb 18:42 Suleman Gruber MD is Attending Physician. kb 18:53 Triage completed. iw 18:55 Arm band placed on. iw 20:52 Urine --Ancillary (enter results) Sent. lg3 20:52 Basic Metabolic Panel Sent. lg3 20:52 CBC with Diff Sent. lg3 20:52 Hepatic Function Sent. lg3 20:52 Magnesium Sent. lg3 20:52 Protime (+inr) Sent. lg3 20:53 Patient has correct armband on for positive identification. Placed in gown. Bed in low lg3 position. Call light in reach. Side rails up X 1. Client placed on continuous cardiac and pulse oximetry monitoring. NIBP monitoring applied. university lecturer on. Door closed. Noise minimized. Warm blanket given. 20:53 Ptt, Activated Sent. lg3 20:53 Inserted saline lock: 20 gauge in left antecubital area, using aseptic technique. Blood lg3 collected. 22:23 No provider procedures requiring assistance completed. IV discontinued, intact, lg3 bleeding controlled, No redness/swelling at site. Pressure dressing applied. Administered Medications: 21:20 Drug: NS 0.9% 1000 ml Route: IV; Rate: 1000 ml; Site: right antecubital; lg3 Medication: 20:53 VIS not applicable for this client. lg3 Outcome: 22:10 Discharge ordered by . kb 22:23 Discharged to home ambulatory. lg3 22:23 Condition: stable 22:23 Discharge instructions given to patient, Instructed on discharge instructions, follow up and referral plans. Demonstrated understanding of instructions, follow-up care. 22:23 Patient left the ED. lg3 Signatures: Michelle Guerin, BENEFIT DIRECTOR-C BENEFIT DIRECTOR-Ckb Keke Iglesias Jossy Padgett RN RN iw Gibson, Lacie, RN RN lg3 Corrections: (The following items were deleted from the chart) 18:54 18:52 Chief complaint: Patient states: fatigue for a few days and dizzy today and felt iw like she was going to pass out, she is having vaginal bleeding since April
[2022-07-14 23:29] VITALS: TEMP 98.8
[2022-07-14 23:35] VITALS: BP 126/80; O2SAT 99
== END 2022-07-14 22:23 | disposition home or self-care (01) ==
LOC: ER 18:01
DX: R55 Syncope and collapse (principal); N93.9 Abnormal uterine and vaginal bleeding, unspecified; R53.83 Other fatigue
CPT/HCPCS: 85025; 80048; 36415; 83735; 81025; 85610; 80076; 85730; 81003; 84484; J7030